=== PATIENT | female | born 1990 | race Caucasian/White ===

== ENCOUNTER 2018-05-18 11:48 | Emergency (ER) | payer SELFPAY ==
[~2018-05-18] VITALS: Ht 157.5 cm; Wt 46.7 kg
[~2018-05-18 11:48] MED LIST: BOTOX100 UNIT IM; ISOMETHEPT-DIC1 EACH PO; MICROGESTIN FE1 EAC1 PO; ORPHENADRINE C100 MG PO
--- OUTSIDE RECORDS SUMMARY | 2018-05-18 11:52 | XMS REPORT | Continuity of Care Document ---
Author Author [facility] Interface Address Unknown Phone Unavailable Problems Problem Status Onset Date Classification Date Reported Comments Source 724.2 - LUMBAGO Active 04/24/2012 [facility] [place] Final: Cervicalgia 11/13/2014 [facility] [place] Final: Superior Glenoid Labrum Lesion 11/13/2014 [facility] [place] Final: Other Affections of Shoulder Region, Not Elsewhere Classified 11/13/2014 [facility] [place] Final: Muscle Weakness 11/13/2014 [facility] [place] Final: Torticollis, Unspecified 11/13/2014 [facility] [place] Final: Abnormal Posture 11/13/2014 [facility] [place] LUMBAR; BI SHOULDER; CERVICAL Active [facility] [place] Medications Medication Details Route Status Patient Instructions Ordering Provider Order Date Source mometasone furoate 0.05 MG/ACTUAT Metered Dose Nasal [place] [Nasonex] 2 spray, NASAL, Daily, PRN for allergy symptoms, # 17 gm, 0 Refill(s), Pharmacy: [id number] Active 09/15/[facility] benzonatate 200 MG Oral Capsule [Tessalon] 200 mg=1 cap, PO, TID, PRN as needed for cough, X 7 day, # 20 cap, 0 Refill(s), Pharmacy: [id number] No Longer Active 09/15/2017 [facility] Robitussin-AC oral syrup 10 mL, PO, Q6H, PRN for cough and congestion, X 14 day, # 120 mL, 0 Refill(s) No Longer Active 09/15/2017 [facility] Wellbutrin PO, 0 Refill(s) Active 09/15/2017 [facility] Lexapro PO, Daily, 0 Refill(s) Active 09/15/2017 [facility] Allergies, Adverse Reactions, Alerts Substance Category Reaction Severity Reaction type Status Date Reported Comments Source Zithromax Assertion Drug allergy Active [facility] Immunizations Immunization Date Given Site Status Last Updated Comments Source Results Order Name Results Value Reference Range Date Interpretation Comments Source Chest 2 views DX Chest 2 views DX Patient Name: ИРИНА DONG : 1990; Age: 27 years y/o Female MR: [id number] Study: Chest 2 views DX 09/15/2017 2:47 PM CDT Ordering Physician: Preet Daniel MD Comparison: None Clinical Indication: - 27 years old female smoker with cough, fever x 5 days. Exam showed decrease BS at the RLL.; Lungs are mildly hyperexpanded. Lungs are clear. Cardiomediastinal silhouette normal. No consolidation or pleural fluid collection is noted. Bony thorax grossly intact. IMPRESSION: No acute cardiopulmonary process. SL: [id number] 09/15/2017 - - Read by: Oz Baumann MD Dictated Date/time: 09/15/17 14:59 Electronically Signed by: Oz Baumann MD 09/15/17 15:00 FINAL REPORT [facility] Finger AP lateral oblique Finger AP lateral oblique Exam: Right finger x-ray, 3 views Reason for Exam: Pain Comparison Exam: None Discussion: Three views of the fifth digit of the right hand were submitted for interpretation. No acute bony abnormalities. Joint spaces are preserved. No suspicious osteoblastic or osteolytic lesions. Impression: 1. No acute bony abnormalities identified. 08/13/2013 - - Read by: Leo Villavicencio MD Dictated Date/time: 08/13/13 10:24 Electronically Signed by: Leo Villavicencio MD 08/13/13 10:25 FINAL REPORT [place] [facility] Vital Signs Vital Sign Value Date Comments Source Weight 50.994 09/15/2017 [facility] BMI Calculated 19.91 09/15/2017 [facility] Height 160.02 cm 09/15/2017 [facility] Heart Rate 77 09/15/2017 [facility] Temperature Oral (F) 98.3 F 09/15/2017 [facility] Systolic (mm Hg) 110 09/15/2017 [facility] Diastolic (mm Hg) 72 09/15/2017 [facility] Encounters Location Location Details Encounter Type Encounter Number Reason For Visit Attending Provider ADM Date DC Date Status Source OD [id number] 724.2 - LUMBAGO SHREYAS HALL 04/24/2012 Active [facility] [place] [facility] - [place] [facility] [id number] Shreyas Hall 08/13/2013 08/14/2013 [facility] [place] [facility] [place] [facility] Patients [id number] Pacheco Genesisng Ginny 10/12/2014 11/10/2014 [facility] [place] Outpatient [id number] [facility] JW 09/15/[address] [facility] [id number] [facility] Jw 09/15/2017 09/16/2017 [facility] Procedures Procedure Code Date Perfomer Comments Source Removal impacted cerumen requiring instrumentation, unilateral 28212 09/15/2017 [facility] Operation<sup>1</sup> [id number] L shoulder [facility]
--- OUTSIDE RECORDS SUMMARY | 2018-05-18 11:52 | XMS REPORT | Summary of Care ---
Author Author [facility] Address Unknown Phone Unavailable Encounter Dannntr_lewis([facility]) [id number] Date(s): 10/12/14 - 11/10/14 [facility] Final: Cervicalgia Final: Superior Glenoid Labrum Lesion Final: Other Affections of Shoulder Region, Not Elsewhere Classified Final: Muscle Weakness (Generalized) Final: Torticollis, Unspecified Final: Abnormal Posture Discharge Disposition: Home Attending Physician: Pacheco Barrios MD Vital Signs No data available for this section Problem List No data available for this section Allergies, Adverse Reactions, Alerts No data available for this section Medications No data available for this section Results No data available for this section Immunizations No data available for this section Procedures No data available for this section Social History No data available for this section Assessment and Plan No data available for this section
--- OUTSIDE RECORDS SUMMARY | 2018-05-18 11:52 | XMS REPORT | Summary of Care ---
Author Organization Unknown Address Unknown Phone Unavailable Encounter [facility] Encntr_alias([facility]) [id number] Date(s): 08/13/13 - 08/13/13 [facility] Outpatient Imaging - [address] [address] [place] Discharge Disposition: Home Physician Attending: Shreyas Hall MD Reason for Visit 729.5 - PAIN IN LIMB Problem List No data available for this section Allergies, Adverse Reactions, Alerts No data available for this section Medications No data available for this section Medications Administered During Your Visit No data available for this section Immunizations No data available for this section
--- OUTSIDE RECORDS SUMMARY | 2018-05-18 11:52 | XMS REPORT | Summary of Care ---
Author Author [facility] Address Unknown Phone Unavailable Encounter BLADIMIR Camacho([facility]) [id number] Date(s): 09/15/17 - 09/15/17 [facility] [address] [place] [phone] Discharge Disposition: Home or Self Care Attending Physician: Preet Daniel MD Vital Signs Most recent to 1 oldest [Reference Range]: Height 160.02 cm (09/15/17 2:29 PM) Temperature Oral 98.3 DegF [96.4-99.1 DegF] (09/15/17 2:29 PM) Blood Pressure 110/72 mmHg [90-140/60-90 mmHg] (09/15/17 2:29 PM) Peripheral Pulse 77 bpm Rate [60-100 bpm] (09/15/17 2:29 PM) Weight 50.994 kg (09/15/17 2:29 PM) Body Mass Index 19.91 m2 (09/15/17 2:29 PM) Problem List No data available for this section Allergies, Adverse Reactions, Alerts Substance Reaction Severity Status Zithromax Active [facility] Lexapro PO, Daily, 0 Refill(s) Start Date: 09/15/17 Status: Ordered Nasonex 50 mcg/inh nasal spray 2 spray, NASAL, Daily, PRN for allergy symptoms, # 17 gm, 0 Refill(s), Pharmacy: [facility] [id number] Start Date: 09/15/17 Status: Ordered Robitussin-AC oral syrup 10 mL, PO, Q6H, PRN for cough and congestion, X 14 day, # 120 mL, 0 Refill(s) Start Date: 09/15/17 Stop Date: 09/29/17 Status: Completed Tessalon 200 mg oral capsule 200 mg=1 cap, PO, TID, PRN as needed for cough, X 7 day, # 20 cap, 0 Refill(s), Pharmacy: [facility] [id number] Start Date: 09/15/17 Stop Date: 09/22/17 Status: Completed Wellbutrin PO, 0 Refill(s) Start Date: 09/15/17 Status: Ordered Results No data available for this section Immunizations No data available for this section Procedures Procedure Date Related Diagnosis Body Site Status Removal impacted cerumen requiring 09/15/17 Completed instrumentation, unilateral Operation1 Completed 1L shoulder Social History Social History Type Response Smoking Status Current every day smoker; Type: Cigarettes; Exposure to Tobacco Smoke None; Cigarette Smoking Last 365 Days Yes; Reg Smoking Cessation Counseling No entered on: 09/15/17 Assessment and Plan No data available for this section
[2018-05-18] MEDS ORDERED: ALBUTEROL/IPRATROPIUM 3 ML NEB NEB NR (12:15)
[2018-05-18] MEDS ORDERED: ALBUTEROL/IPRATROPIUM 3 ML NEB ONE (12:18)
--- NOTE | 2018-05-18 12:24 | NUR ---
PATIENT SITTING IN HALLWAY RECEIVING BREATHING TX
--- NOTE | 2018-05-18 13:21 | Diagnostic Imaging Report ---
EXAMINATION: PA and lateral views of the chest. COMPARISON: None CLINICAL HISTORY: Dear infection, cough and congestion DISCUSSION: Lines/tubes: None. Lungs: The lungs are well inflated and clear. There is no evidence of pneumonia or pulmonary edema. Pleura: There is no pleural effusion or pneumothorax. Heart and mediastinum: Cardiomediastinal silhouette is unremarkable. Pulmonary vasculature is normal. Bones and soft tissues: No acute bony abnormalities. IMPRESSION: No acute cardiopulmonary abnormalities. Signed by: Dr. Mayco Vera M.D. on 05/18/2018 1:18 PM
== END 2018-05-18 13:31 | disposition home or self-care (01) ==
LOC: ER 11:48
DX: R05 Cough (principal); J20.9 Acute bronchitis, unspecified; J30.2 Other seasonal allergic rhinitis; J30.1 Allergic rhinitis due to pollen
CPT/HCPCS: 71046; 94640; 99283